=== PATIENT | female | born 1990 | race Caucasian/White ===

== ENCOUNTER → 2020-10-04 | Outpatient (CLI) | payer OTHER ==
[~2020-10-04] MED LIST: ACET-1600 PO; CA C1TAB39 PO; CYAN1TAB29 PO; IBUP200C8 PO; OMEG-133 PO; PREN1TAB10 PO
== END | disposition home or self-care (01) ==
LOC: STAR 14:48
PROVIDERS: ATTEND Orthopaedic Surgery Hand Surgery
DX: Z20.822 Contact with and (suspected) exposure to COVID-19 (principal); S66.119A Strain of flexor muscle, fascia and tendon of unspecified finger at wrist and hand level, initial encounter; X58.XXXA Exposure to other specified factors, initial encounter; Y93.89 Activity, other specified; Y92.89 Other specified places as the place of occurrence of the external cause; Y99.8 Other external cause status
CPT/HCPCS: 87635

== ENCOUNTER 2020-10-10 05:36 | Day surgery (SDC) | payer OTHER ==
[~2020-10-10] VITALS: Ht 162.6 cm; Wt 88.5 kg
[2020-10-10 06:10] VITALS: BP 123/78
[2020-10-10 06:11] LABS: HCG UR SG 1.017 (1.003-1.030)
[2020-10-10] MEDS ORDERED: BUPIVACAINE/PF 0.25% ONE (06:22)
[2020-10-10] MEDS ORDERED: LACTATED RINGERS 1,000 ML IV SCH (06:30)
[2020-10-10] MEDS ORDERED: CHLORHEXIDINE 15 ML UDC MM ONE (06:30)
[2020-10-10] MEDS ORDERED: MIDAZOLAM 1 MG/ML, 2ML ONE (06:53)
[2020-10-10] MEDS ORDERED: FENTANYL PF 100 MCG/2ML ONE ×2 (06:53→09:34)
[2020-10-10] MEDS ORDERED: ROCURONIUM 10MG/ML,5ML ONE (06:56)
[2020-10-10] MEDS ORDERED: PROPOFOL 10 MG/ML, 20ML ONE (07:01)
[2020-10-10] MEDS ORDERED: ONDANSETRON 2MG/ML, 2ML ONE ×2 (07:02→07:10)
[2020-10-10] MEDS ORDERED: DEXAMETHASONE 4 MG/ML, 1ML ONE (07:02)
[2020-10-10] MEDS ORDERED: CEFAZOLIN 1,000 MG ONE ×2 (07:02→07:10)
[2020-10-10] MEDS ORDERED: DEXAMETHASONE 4 MG/ML, 5ML ONE (07:10)
[2020-10-10] MEDS ORDERED: OXYcodone 5 MG/5 ML ORAL.SOL UDC PO PRN (07:30)
[2020-10-10] MEDS ORDERED: HYDROmorphone 1 MG/ML, 1ML INJ IVPush PRN (07:30)
[2020-10-10] MEDS ORDERED: ONDANSETRON 2MG/ML, 2ML IVPush PRN (07:30)
[2020-10-10] MEDS ORDERED: PROMETHAZINE 12.5 MG SUPP PR PRN (07:30)
[2020-10-10] MEDS ORDERED: MEPERIDINE/PF 25MG/0.5ML IVPush PRN (07:30)
[2020-10-10] MEDS ORDERED: LABETALOL 5MG/ML, 20ML IV PRN (07:30)
[2020-10-10] MEDS ORDERED: DIAZEPAM 5 MG/ML, 2ML IVPush PRN (07:30)
[2020-10-10] MEDS ORDERED: DIPHENHYDRAMINE 50 MG/ML, 1ML IVPush PRN (07:30)
[2020-10-10] MEDS ORDERED: FENTANYL PF 100 MCG/2ML IV PRN (07:30)
[2020-10-10] MEDS ORDERED: hydrALAzine 20 MG/ML, 1ML IV PRN (07:30)
[2020-10-10] MEDS ORDERED: EPHEDRINE 50 MG/ML, 1ML IVPush PRN (07:30)
[2020-10-10] MEDS ORDERED: ACETAMINOPHEN 325 MG TABLET PO PRN (07:30)
[2020-10-10] MEDS ORDERED: ALBUTEROL SULFATE 2.5 MG/3 ML NPPB PRN (07:30)
[2020-10-10] MEDS ORDERED: MIDAZOLAM 1 MG/ML, 2ML IV PRN (07:30)
[2020-10-10] MEDS ORDERED: PROMETHAZINE 25 MG/ML, 1ML IVPush PRN (07:30)
[2020-10-10] MEDS ORDERED: PROMETHAZINE 25 MG/ML, 1ML ONE (09:27)
[2020-10-10] MEDS ORDERED: ACETAMINOPHEN 650 MG/20.3 ML UDC ONE (09:34)
[2020-10-10] MEDS ORDERED: OXYcodone 5 MG/5 ML ORAL.SOL UDC ONE (09:35)
== END 2020-10-10 11:10 | disposition home or self-care (01) ==
LOC: OUT 05:36
PROVIDERS: ATTEND Orthopaedic Surgery Hand Surgery
DX: S66.195A Other injury of flexor muscle, fascia and tendon of left ring finger at wrist and hand level, initial encounter (principal); M96.820 Accidental puncture and laceration of a musculoskeletal structure during a musculoskeletal system procedure; E03.9 Hypothyroidism, unspecified; E66.9 Obesity, unspecified; Z79.899 Other long term (current) drug therapy; Z88.5 Allergy status to narcotic agent; Y04.0XXA Assault by unarmed brawl or fight, initial encounter; Y93.89 Activity, other specified; Y92.89 Other specified places as the place of occurrence of the external cause; Y99.8 Other external cause status; Y83.8 Other surgical procedures as the cause of abnormal reaction of the patient, or of later complication, without mention of misadventure at the time of the procedure
CPT/HCPCS: 26860; 73140; 81025; C1713; J0690; J1100; J2250; J2405; J2550; J2704; J3010; J7120; 76000